=== PATIENT | male | born 1975 | race Caucasian/White ===

== ENCOUNTER 2017-01-31 23:11 | Emergency (ER) | payer MEDICAID, OTHER ==
[~2017-01-31] VITALS: Ht 180.3 cm; Wt 100.0 kg
[2017-01-31 23:17] VITALS: Ht 180.3 cm; Wt 100.0 kg
--- NOTE | 2017-02-01 01:40 | RADRPT ---
PROCEDURE: XR Cervical Spine. CLINICAL INDICATION: Neck pain TECHNIQUE: AP, lateral and odontoid and swimmers views of the cervical spine were performed. The i mages were reviewed on a PACS workstation. COMPARISON: None. FINDINGS: No fracture or dislocation is seen. C7 vertebral body is partially obscured by overlying shoulders on the lateral and swimmer's views. Vertebral body osteophyte formation interspace narrowing is see n at C5-6 IMPRESSION: Degenerative changes at C5-6. C7 vertebral body and the C7-T1 interspace partially obscured by over lying shoulders on the lateral and swimmer's views . Please see above. RPTAT: HJES .Maurilio Randall MD, Date Time Electronically viewed and signed by .Maurilio Randall MD, on 02/01/2017 01:40 .S/
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
[2017-02-01 02:00] VITALS: BP 169/94; PULSE 78; RESP 18; TEMP 97.1
== END 2017-02-01 02:00 ==
LOC: E/R 23:11
DX: Z02.89 Encounter for other administrative examinations (principal); Z87.891 Personal history of nicotine dependence
CPT/HCPCS: 72050